=== PATIENT | male | born 1960 | race Two or more races ===

== ENCOUNTER 2024-09-20 16:47 | Emergency (ER) | payer OTHER ==
[2024-09-20 17:02] VITALS: BP 165/83; PULSE 102; RESP 18; TEMP 98.9; BMI 23.6
[2024-09-20] MEDS ORDERED: ONDANSETRON 4 MG/2 ML VIAL ONE (18:00)
[2024-09-20 18:32] LABS: VENOUS BASE EXCESS 2.7 mmol/L (-2-2); VENOUS O2 SATURATION 24.7 % (70-80); VENOUS PCO2 30.8 mmHg (38-52); VENOUS PH 7.522 (7.310-7.410)
[2024-09-20] MEDS: ONDANSETRON 4 MG/2 ML VIAL IVPUSH ONE (18:34)
[2024-09-20 19:04] LABS: BASO % 0.2 % (0-2.0); EOS % 0.1 % (0-4.5); HEMOGLOBIN 14.2 GM/dL (11.7-16.9); LYMPH % 3.3 % (8-40); MCH 28.5 pg (25.7-33.7); MCHC 32.9 g/dl (32.0-35.9); MEAN CELL VOLUME 86.4 fl (80-96); MEAN PLT VOLUME 8.1 fl (7.5-11.1); MONO % 6.3 % (3.8-10.2); NEUT % 90.1 % (42.8-82.8); PLATELET COUNT 323 10^3/uL (134-434); RBC 4.98 M/mm3 (4.00-5.60); RDW 13.2 % (11.9-15.9); WHITE BLOOD COUNT 15.3 K/mm3 (4.0-10.0)
[2024-09-20 19:11] LABS: POTASSIUM 4.1 mmol/L (3.5-5.1)
[2024-09-20 19:13] LABS: ALBUMIN 4.1 g/dl (3.4-5.0); BLOOD UREA NITROGEN 13.3 mg/dL (7-18)
[2024-09-20 19:18] LABS: BILIRUBIN,TOTAL 0.8 mg/dL (0.2-1); TOT PROT 7.2 g/dl (6.4-8.2)
[2024-09-20] MEDS ORDERED: FAMOTIDINE 20 MG TABLET PO ONE (20:19)
[2024-09-20] MEDS ORDERED: MAG HYDROX/AL HYDROX/SIMETH 30 ML UNIT-DOSE CUP PO ONE (20:19)
[2024-09-20] MEDS ORDERED: SUCRALFATE 1 GM TABLET (FP) PO ONE (20:20)
[2024-09-20] MEDS ORDERED: SUCRALFATE 1 GM TABLET (FP) ONE (20:37)
[2024-09-20] MEDS ORDERED: FAMOTIDINE 20 MG TABLET ONE (20:37)
[2024-09-20] MEDS ORDERED: MAG HYDROX/AL HYDROX/SIMETH 30 ML UNIT-DOSE CUP ONE (20:38)
== END 2024-09-20 20:50 | disposition home or self-care (01) ==
LOC: JER 16:47
PROC: 3E033GC Introduction of Other Therapeutic Substance into Peripheral Vein, Percutaneous Approach (ICD-10-PCS; principal; 2024-09-20)
DX: R11.2 Nausea with vomiting, unspecified (principal); R51.9 Headache, unspecified
CPT/HCPCS: 36415; 71046-TC-FY; 80053; 82803; 83690; 84484; 85025; 93005; 93010; 99285-25